=== PATIENT | male | born 1960 | race Caucasian/White ===

== ENCOUNTER 2020-09-20 06:11 | Day surgery (SDC) | payer OTHER ==
[2020-09-16 13:52] LABS: HEMATOCRIT 44.2 % (37.9-51.0); HEMOGLOBIN 14.6 g/dL (13.5-17.0); MEAN CORPUSCULAR HEMOGLOBIN 28.9 pg (27.0-33.4); MEAN CORPUSCULAR HGB CONC 32.9 g/dL (32.0-36.0); MEAN CORPUSCULAR VOLUME 88 fl (80-97); PLATELET COUNT 321 10^3/uL (150-450); RED BLOOD COUNT 5.03 10^6/uL (4.35-5.55); RED CELL DISTRIBUTION WIDTH 13.9 % (11.5-14.0); WHITE BLOOD COUNT 6.7 10^3/uL (4.0-10.5)
[2020-09-16 13:55] LABS: INTERNATIONAL RATION (INR) 0.86; PROTHROMBIN TIME 11.9 SEC (11.4-15.4)
[2020-09-16 13:56] LABS: PARTIAL THROMBOPLASTIN TIME 33.7 SEC (23.5-35.8)
[2020-09-16 14:17] LABS: ANION GAP 9 (5-19); BLOOD UREA NITROGEN 17 mg/dL (7-20); CALCIUM 10.1 mg/dL (8.4-10.2); CARBON DIOXIDE 28 mmol/L (22-30); CHLORIDE 96 mmol/L (98-107); GLUCOSE 79 mg/dL (75-110); POTASSIUM 4.9 mmol/L (3.6-5.0)
--- NOTE | 2020-09-17 09:18 | EKG REPORT ---
SEVERITY:- ABNORMAL ECG - SINUS RHYTHM INCOMPLETE RIGHT BUNDLE BRANCH BLOCK : Confirmed by: Isai Hale 17-Sep-2020 09:17:34
[~2020-09-20 06:11] MED LIST: DOXYCYCLINE HYCLATE 100 MG in DEXTROSE 5%-WATER 250 ML IV PRN
[2020-09-20] MEDS ORDERED: LIDOCAINE 2% INJ-PF (20 MG/ML) 10 ML AMPUL ONE (07:14)
[2020-09-20] MEDS ORDERED: PROPOFOL INJ 200 MG/20 ML VIAL IV ONE ×2 (07:15→10:24)
[2020-09-20] MEDS ORDERED: DEXMEDETOMIDINE INJ 80 MCG/20 ML VIAL IV ONE (07:15)
[2020-09-20] MEDS ORDERED: FENTANYL CITRATE INJ/PF 100 MCG/2 ML AMPUL ONE (07:15)
[2020-09-20] MEDS ORDERED: ONDANSETRON HCL INJ/PF 4 MG/2 ML SDV ONE (07:15)
[2020-09-20] MEDS ORDERED: MIDAZOLAM 2 MG/2 ML INJ ONE (07:15)
[2020-09-20] MEDS ORDERED: SODIUM BICARBONATE 4.2% INJ (2.5 MEQ/5 ML) VIAL ONE (08:24)
[2020-09-20] MEDS ORDERED: LIDOCAINE 1%/EPINEPHRINE INJ 20 ML VIAL ONE (08:24)
[2020-09-20] MEDS ORDERED: MORPHINE SULFATE 10 MG/ML INJ IV PRN (10:12)
[2020-09-20] MEDS ORDERED: OXYCODONE-ACETAMINOPHEN 5-325 MG TABLET PO PRN ×2 (10:12)
[2020-09-20] MEDS ORDERED: ONDANSETRON HCL INJ/PF 4 MG/2 ML SDV IV PRN (10:12)
[2020-09-20] MEDS ORDERED: FENTANYL CITRATE INJ/PF 100 MCG/2 ML AMPUL IV PRN ×3 (10:12)
[2020-09-20] MEDS ORDERED: PROMETHAZINE HCL INJ 25 MG/1 ML VIAL IV PRN ×2 (10:12)
[2020-09-20] MEDS ORDERED: DIPHENHYDRAMINE HCL 50 MG/ML VIAL IV PRN (10:12)
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
[2020-09-20] MEDS ORDERED: ACETAMINOPHEN 325 MG TABLET ONE (10:43)
[2020-09-20 13:54] VITALS: BP 141/80
== END 2020-09-20 12:00 | disposition home or self-care (01) ==
LOC: OROUT 06:11
PROVIDERS: ATTEND Plastic Surgery
DX: T24.4 Corrosion of unspecified degree of lower limb, except ankle and foot (principal); L90.5 Scar conditions and fibrosis of skin; X58.XXXS Exposure to other specified factors, sequela; Z20.828 Contact with and (suspected) exposure to other viral communicable diseases; Z79.01 Long term (current) use of anticoagulants; F17.210 Nicotine dependence, cigarettes, uncomplicated; K21.9 Gastro-esophageal reflux disease without esophagitis; Z79.899 Other long term (current) drug therapy
CPT/HCPCS: 93005; 36415; 85027; 85610; 85730; 87635; 80048; 93010; 00300; 14301; J2250; J3490 ×4; J2405; J7060; J2704; C9803; 300; J3010